=== PATIENT | female | born 1930 | race Caucasian/White ===

== ENCOUNTER 2019-08-12 11:35 | Day surgery (SDC) | payer MEDICARE ==
[~2019-08-12] VITALS: Ht 157.5 cm; Wt 45.2 kg
[2019-08-12] MEDS ORDERED: LACTATED RINGERS 1,000 ML IV SCH (12:14)
[2019-08-12] MEDS ORDERED: METR250T18 PO (12:18)
[2019-08-12] MEDS ORDERED: MIRALAX PO (12:18)
[2019-08-12] MEDS ORDERED: OMNICEF (12:18)
[2019-08-12 12:23] VITALS: BP 135/78
[2019-08-12] MEDS ORDERED: PLEASE ENTER HEIGHT AND WEIGHT MC SCH (12:30)
[2019-08-12] MEDS ORDERED: LIDOCAINE-MPF 1%, 2ML INFIL ONE (12:30)
[2019-08-12] MEDS ORDERED: FENTANYL PF 100 MCG/2ML ONE ×3 (12:42→14:30)
[2019-08-12] MEDS ORDERED: ONDANSETRON ODT 8 MG PO PRN (13:00)
[2019-08-12] MEDS ORDERED: ONDANSETRON 2MG/ML, 2ML IV PRN (13:00)
[2019-08-12] MEDS ORDERED: ACETAMINOPHEN 325 MG TABLET PO PRN (13:00)
[2019-08-12] MEDS ORDERED: PROMETHAZINE 25 MG/ML, 1ML IV PRN (13:00)
[2019-08-12] MEDS ORDERED: OXYcodone 5 MG/5 ML ORAL.SOL UDC PO PRN (13:00)
[2019-08-12] MEDS ORDERED: SUGAMMADEX 200 MG/2 ML IVPush ONE (14:10)
[2019-08-12] MEDS ORDERED: SUCCINYLCHOLINE 20 MG/ML, 10ML ONE (14:10)
[2019-08-12] MEDS ORDERED: GLYCOPYRROLATE 0.2MG/1ML, 5ML ONE (14:10)
[2019-08-12] MEDS ORDERED: DEXAMETHASONE 4 MG/ML, 1ML ONE (14:10)
[2019-08-12] MEDS ORDERED: ONDANSETRON 2MG/ML, 2ML ONE (14:10)
[2019-08-12] MEDS ORDERED: NEOSTIGMINE 1 MG/ML, 10ML ONE (14:10)
[2019-08-12] MEDS ORDERED: PROPOFOL 10 MG/ML, 20ML ONE (14:10)
[2019-08-12] MEDS ORDERED: ROCURONIUM 10MG/ML,5ML ONE (14:10)
[2019-08-12] MEDS ORDERED: CEFAZOLIN 1,000 MG ONE (14:10)
[2019-08-12] MEDS ORDERED: LABETALOL 5MG/ML, 20ML ONE (14:26)
[2019-08-12] MEDS ORDERED: LABETALOL 5MG/ML, 20ML IVPush STA (14:28)
[2019-08-12] MEDS: FENTANYL PF 100 MCG/2ML IV PRN ×2 (14:33→14:51)
[2019-08-12] MEDS ORDERED: OMNIPAQUE 350 MG/ML, 50 ML BOTTLE ONE (14:54)
[2019-08-12] MEDS ORDERED: LABETALOL 5MG/ML, 20ML IVPush ONE (15:30)
== END 2019-08-12 16:05 | disposition home or self-care (01) ==
LOC: OUT 11:35
PROVIDERS: ATTEND Internal Medicine
DX: K80.50 Calculus of bile duct without cholangitis or cholecystitis without obstruction (principal); K57.10 Diverticulosis of small intestine without perforation or abscess without bleeding; I11.0 Hypertensive heart disease with heart failure; I50.9 Heart failure, unspecified; Z79.899 Other long term (current) drug therapy; Z88.5 Allergy status to narcotic agent
CPT/HCPCS: 43264; 43274; 74328; 93005; C1769; C1894; C2625; J0690; J1100; J2405; J2704; J3010; J7120; Q9967; J2710; J0330

== ENCOUNTER 2019-09-30 05:22 | Day surgery (SDC) | payer MEDICARE ==
[~2019-09-30] VITALS: Ht 157.5 cm; Wt 45.3 kg
[~2019-09-30 05:22] MED LIST: METR250T18 PO; MIRALAX PO; OMNICEF
[2019-09-30] MEDS ORDERED: LACTATED RINGERS 1,000 ML IV SCH (05:48)
[2019-09-30] MEDS ORDERED: ALEN70TA6 PO (05:58)
[2019-09-30] MEDS ORDERED: IBUP-1223 PO (05:59)
[2019-09-30] MEDS ORDERED: LIDOCAINE-MPF 1%, 2ML INFIL ONE (06:00)
[2019-09-30 06:08] VITALS: BP 137/80
[2019-09-30] MEDS ORDERED: PROPOFOL 50 ML ONE (07:32)
[2019-09-30] MEDS ORDERED: CEFAZOLIN 1,000 MG ONE (07:37)
[2019-09-30] MEDS ORDERED: FENTANYL PF 100 MCG/2ML ONE (07:50)
[2019-09-30] MEDS ORDERED: FENTANYL PF 100 MCG/2ML IV PRN (08:00)
[2019-09-30] MEDS ORDERED: ONDANSETRON ODT 8 MG PO PRN (08:00)
[2019-09-30] MEDS ORDERED: METOPROLOL 1 MG/ML, 5ML IV PRN (08:00)
[2019-09-30] MEDS ORDERED: EPHEDRINE 50 MG/ML, 1ML IVPush PRN (08:00)
[2019-09-30] MEDS ORDERED: ONDANSETRON 2MG/ML, 2ML IV PRN (08:00)
[2019-09-30] MEDS ORDERED: DIAZEPAM 5 MG/ML, 2ML IVPush PRN (08:00)
[2019-09-30] MEDS ORDERED: HYDROmorphone 2 MG/ML, 1ML IVPush PRN (08:00)
[2019-09-30] MEDS ORDERED: hydrALAzine 20 MG/ML, 1ML IV PRN (08:00)
[2019-09-30] MEDS ORDERED: EPHEDRINE 50 MG/ML, 1ML IM PRN (08:00)
[2019-09-30] MEDS ORDERED: METOPROLOL 1 MG/ML, 5ML ONE (08:07)
[2019-09-30] MEDS ORDERED: LABETALOL 5MG/ML, 20ML ONE (09:20)
[2019-09-30] MEDS: LABETALOL 5MG/ML, 20ML IV PRN ×2 (09:34→09:45)
[2019-09-30] MEDS ORDERED: ACETAMINOPHEN 325 MG TABLET ONE (10:07)
[2019-09-30] MEDS ORDERED: hydrALAzine 20 MG/ML, 1ML ONE (10:07)
[2019-09-30] MEDS ORDERED: ACETAMINOPHEN 325 MG TABLET PO PRN (10:30)
[2019-09-30] MEDS ORDERED: OXYcodone 5 MG/5 ML ORAL.SOL UDC PO PRN (11:00)
[2019-09-30] MEDS ORDERED: OMNIPAQUE 350 MG/ML, 50 ML BOTTLE ONE (11:12)
== END 2019-09-30 12:10 | disposition home or self-care (01) ==
LOC: OUT 05:22
PROVIDERS: ATTEND Internal Medicine
DX: K80.50 Calculus of bile duct without cholangitis or cholecystitis without obstruction (principal); Z88.8 Allergy status to other drugs, medicaments and biological substances
CPT/HCPCS: 43276; 74328; C1769; J0690; J2704; J3010; J7120; Q9967